=== PATIENT | male | born 1980 | race African-American/Black ===

== ENCOUNTER 2018-02-28 15:11 | Emergency (ER) | payer OTHER ==
[~2018-02-28] VITALS: Ht 188 cm; Wt 90.7 kg
--- NOTE | 2018-02-28 15:18 | NUR ---
CALLED PT FOR TRIAGE IN [place] NO ANSWER
[2018-02-28 16:27] LABS: BASOPHILS % (AUTO) 0.6 % (0.0-2.0); HEMATOCRIT 39 % (39-51); HEMOGLOBIN 13.2 g/dL (13.5-17.5); LYMPHOCYTES # (AUTO) 1.4 /CMM (0.8-4.8); MEAN CORPUSCULAR HGB CONC 34 g/dl (31.0-36.0); MEAN CORPUSCULAR VOLUME 94 fL (80-96); MONOCYTES # (AUTO) 0.6 /CMM (0.1-1.30); MONOCYTES % (AUTO) 10.4 % (2.0-12.0); NEUTROPHILS # (AUTO) 3.5 /CMM (1.8-8.9); PLATELET COUNT (AUTO) 413 /CMM (150-450); WHITE BLOOD COUNT (AUTO) 5.6 K/uL (4.3-11.0)
[2018-02-28 16:36] LABS: CALCIUM, SERUM 8.5 mg/dL (8.5-10.1); CARBON DIOXIDE 31 mmol/L (21-32); CHLORIDE 102 mmol/L (98-107); CREATININE 0.9 mg/dL (0.6-1.3); GLUCOSE 108 mg/dL (74-106); POTASSIUM 3.7 mmol/L (3.5-5.1); SODIUM SERUM 137 mmol/L (136-145); UREA NITROGEN, BLOOD 14 mg/dL (7-18)
[2018-02-28 16:42] LABS: ACETAMINOPHEN < 2 ug/ml (10-30); ALANINE AMINOTRANSFERASE 40 U/L (12-78); ALBUMIN 3.4 g/dL (3.4-5.0); ALCOHOL, BLOOD < 3 mg/dL (0-0); ALKALINE PHOSPHATASE 61 U/L (46-116); ASPARTATE AMINOTRANSFERASE 40 U/L (15-37); BILIRUBIN,DIRECT 0.1 mg/dL (0.0-0.2); BILIRUBIN,TOTAL 0.3 mg/dL (0.2-1.0); TOTAL PROTEIN, SERUM 6.7 g/dL (6.4-8.2)
--- NOTE | 2018-02-28 17:33 | NUR ---
CLEARED BY PSYCHIATRIC TEAM; MEDICALLY CLEARED BY DR. VERGARA. THE PATIENT WAS VERBALLY ABUSIVE, CALLING THE PET WORK COUNSELOR " YOU FUCKING WHITE BITCH". CALLED MARIO PIMENTEL; THE PATIENT WAS DISCHARGED HOME, THE PATIENT WAS ESCORTED OUT BY THE SECURITY FOR SAFETY OF THE STAFF.
[2018-02-28 17:40] VITALS: BP 145/78
== END 2018-02-28 17:40 | disposition home or self-care (01) ==
LOC: ER 15:13
DX: F20.9 Schizophrenia, unspecified (principal); F31.9 Bipolar disorder, unspecified; F17.200 Nicotine dependence, unspecified, uncomplicated; F12.10 Cannabis abuse, uncomplicated; F10.10 Alcohol abuse, uncomplicated; Y90.0 Blood alcohol level of less than 20 mg/100 ml; Z88.8 Allergy status to other drugs, medicaments and biological substances; Z88.4 Allergy status to anesthetic agent
CPT/HCPCS: 36415; 80048; 80076; 80329; 85025; 99283; G0480 ×2

== ENCOUNTER 2018-03-15 00:27 | Emergency (ER) | payer OTHER ==
[~2018-03-15] VITALS: Ht 190.5 cm; Wt 105.7 kg
[2018-03-15 01:20] VITALS: BP 138/84
== END 2018-03-15 04:09 | disposition home or self-care (01) ==
LOC: ER 00:29
DX: F25.9 Schizoaffective disorder, unspecified (principal); K21.9 Gastro-esophageal reflux disease without esophagitis; F17.200 Nicotine dependence, unspecified, uncomplicated; I10 Essential (primary) hypertension; F31.9 Bipolar disorder, unspecified; F10.10 Alcohol abuse, uncomplicated; Z76.0 Encounter for issue of repeat prescription; Z88.8 Allergy status to other drugs, medicaments and biological substances; Z88.9 Allergy status to unspecified drugs, medicaments and biological substances; Y90.9 Presence of alcohol in blood, level not specified